=== PATIENT | male | born 1980 | race Two or more races ===

== ENCOUNTER 2017-09-19 11:35 | Outpatient (CLI) | payer OTHER ==
[~2017-09-19] VITALS: Ht 172.7 cm; Wt 78.0 kg
[2017-09-19] MEDS ORDERED: CEFUROXIME500 MG PO (13:27)
[2017-09-19] MEDS ORDERED: FLONASE16 GM NASAL (13:27)
== END 2017-09-19 11:50 | disposition home or self-care (01) ==
LOC: OFIC 805 11:35
DX: J32.8 Other chronic sinusitis (principal); R06.83 Snoring; G47.33 Obstructive sleep apnea (adult) (pediatric)

== ENCOUNTER 2018-01-30 08:16 | Outpatient (CLI) | payer OTHER ==
[~2018-01-30] VITALS: Ht 152.4 cm; Wt 78.0 kg
[~2018-01-30 08:16] MED LIST: CEFUROXIME500 MG PO; FLONASE16 GM NASAL
== END 2018-01-30 08:30 | disposition home or self-care (01) ==
LOC: OFIC 805 08:16
DX: J01.80 Other acute sinusitis (principal); G47.33 Obstructive sleep apnea (adult) (pediatric); R06.83 Snoring

== ENCOUNTER 2018-06-03 09:56 | Emergency (ER) | payer OTHER ==
[~2018-06-03] VITALS: Ht 167.6 cm; Wt 77.1 kg
[2018-06-03] MEDS ORDERED: AMOX1TAB5 PO (11:59)
== END 2018-06-03 12:24 | disposition home or self-care (01) ==
LOC: ER 09:56
DX: B34.9 Viral infection, unspecified (principal)

== ENCOUNTER 2020-01-07 07:51 | Outpatient (CLI) | payer OTHER ==
[~2020-01-07 07:51] MED LIST changes: +AMOX1TAB5 PO
== END 2020-01-07 08:17 | disposition home or self-care (01) ==
LOC: LAB 07:51
PROVIDERS: ATTEND Internal Medicine
DX: E78.2 Mixed hyperlipidemia (principal); Z11.3 Encounter for screening for infections with a predominantly sexual mode of transmission; E55.9 Vitamin D deficiency, unspecified; Z13.228 Encounter for screening for other metabolic disorders; Z13.220 Encounter for screening for lipoid disorders; N40.1 Benign prostatic hyperplasia with lower urinary tract symptoms; M25.50 Pain in unspecified joint; E03.8 Other specified hypothyroidism; N30.90 Cystitis, unspecified without hematuria

== ENCOUNTER 2020-01-08 08:01 | Outpatient (CLI) | payer OTHER | END 2020-01-08 08:11 | disposition home or self-care (01) | LOC: LAB 08:01 | PROVIDERS: ATTEND Internal Medicine | DX: N40.1 Benign prostatic hyperplasia with lower urinary tract symptoms (principal); E78.2 Mixed hyperlipidemia; Z11.3 Encounter for screening for infections with a predominantly sexual mode of transmission; E55.9 Vitamin D deficiency, unspecified; Z13.0 Encounter for screening for diseases of the blood and blood-forming organs and certain disorders involving the immune mechanism; Z13.228 Encounter for screening for other metabolic disorders; Z13.220 Encounter for screening for lipoid disorders; K92.1 Melena; M25.50 Pain in unspecified joint; E03.8 Other specified hypothyroidism; N30.90 Cystitis, unspecified without hematuria ==

== ENCOUNTER → 2020-01-12 | Outpatient (CLI) | payer OTHER | END | disposition home or self-care (01) | LOC: SONOGRAMA 08:22 | PROVIDERS: ATTEND Internal Medicine | DX: E78.2 Mixed hyperlipidemia (principal) ==